=== PATIENT | female | born 1980 ===

== ENCOUNTER 2018-06-07 13:30 | Inpatient (IN) | payer OTHER ==
[~2018-06-07] VITALS: Ht 152.4 cm; Wt 2.3 kg
[2018-06-21] MEDS ORDERED: PRENATAL 19 TA1 EAC1 (12:15)
== END 2018-06-29 14:44 | DRG 766 ==
LOC: O/R 06-26 08:18 → SURG-SUITE 06-26 08:18 → LDR 06-26 08:30 → SURG-SUITE 06-26 18:03
PROVIDERS: Obstetrics & Gynecology
PROC: 0UL70ZZ Occlusion of Bilateral Fallopian Tubes, Open Approach (ICD-10-PCS; 2018-06-26)
PROC: 4A1HXCZ Monitoring of Products of Conception, Cardiac Rate, External Approach (ICD-10-PCS; 2018-06-26)
PROC: 10D00Z1 Extraction of Products of Conception, Low, Open Approach (ICD-10-PCS; principal; 2018-06-26 08:30)
DX: O34.211 Maternal care for low transverse scar from previous cesarean delivery (principal); Z3A.39 39 weeks gestation of pregnancy; Z37.0 Single live birth; Z30.2 Encounter for sterilization